=== PATIENT | female | born 2000 | race American Indian/Alaskan Native ===

== ENCOUNTER 2020-06-20 11:05 | Emergency (ER) | payer SELFPAY ==
--- NOTE | 2020-06-20 12:18 | Emergency Department Report ---
ED Female HPI - General Chief complaint: Abdominal Pain Stated complaint: ABD PAIN Time Seen by Provider: 06/20/20 12:05 Source: patient Mode of arrival: Ambulatory Limitations: No Limitations - History of Present Illness Initial comments: 20 yo female morbidly obese female. States that she's not had a period for 6 months. on this past she had one day of spotting. She denies abdominal pain , no urinary symptoms,no fever no chills - Related Data Previous Rx's Medication Instructions Recorded Last Taken Type Azithromycin [Zithromax Z-CELI] 250 mg PO DAILY #6 tablet 09/08/19 Unknown Rx Benzonatate [Tessalon Perles] 100 mg PO Q8HR #30 capsule 09/08/19 Unknown Rx Butalb/Acetamin/Caff 50-325-40 1 - 2 tab PO Q6HR PRN #12 tab 09/08/19 Unknown Rx [Fioricet 50-325-40] Cetirizine HCl [Zyrtec 10mg tab] 10 mg PO DAILY #30 tablet 09/08/19 Unknown Rx Ibuprofen [Motrin] 800 mg PO Q8HR PRN #24 tablet 09/08/19 Unknown Rx Allergies Allergy/AdvReac Type Severity Reaction Status Date / Time No Known Allergies Allergy Unverified 09/08/19 20:33 ED Review of Systems ROS: Stated complaint: ABD PAIN Other details as noted in HPI ED Past Medical Hx - Past Medical History Previous Medical History?: No - Surgical History Past Surgical History?: No - Social History Smoking Status: Never Smoker Substance Use Type: Other - Medications Home Medications: Home Medications Medication Instructions Recorded Confirmed Last Taken Type Azithromycin [Zithromax Z-CELI] 250 mg PO DAILY #6 tablet 09/08/19 Unknown Rx Benzonatate [Tessalon Perles] 100 mg PO Q8HR #30 capsule 09/08/19 Unknown Rx Butalb/Acetamin/Caff 50-325-40 1 - 2 tab PO Q6HR PRN #12 tab 09/08/19 Unknown Rx [Fioricet 50-325-40] Cetirizine HCl [Zyrtec 10mg tab] 10 mg PO DAILY #30 tablet 09/08/19 Unknown Rx Ibuprofen [Motrin] 800 mg PO Q8HR PRN #24 tablet 09/08/19 Unknown Rx ED Physical Exam - General Limitations: No Limitations ED Course Vital Signs 06/20/20 11:41 Temperature 98.8 F Pulse Rate 81 Respiratory 18 Rate Blood Pressure 133/70 O2 Sat by Pulse 99 Oximetry ED Medical Decision Making - Lab Data Result diagrams: 06/20/20 12:35 06/20/20 13:58 - Medical Decision Making This is a 20-year-old obese female complaining of not having her period for 6 months and 2 days ago having light spotting. At the time of my examination patient denied any abdominal pain. Urinalysis shows no sign of infection but her urine glucose is greater than 500 CBC is within normal limits chemistry is also within normal limits with the exception of a sodium of 134. Her glucose on her serum is 85. She has a negative test and her lipase is within normal limits. I instructed patient to follow-up with primary care doctor so she can be monitored for diabetes. She currently has no symptoms in her blood glucose is it within normal limits. I also instruct patient to follow-up with [facility] for her menstrual. And possibly be worked up for PCOS. Patient verbalized instructions Critical care attestation.: If time is entered above; I have spent that time in minutes in the direct care of this critically ill patient, excluding procedure time. ED Disposition Clinical Impression: Amenorrhea, unspecified, Obesity (BMI 35.0-39.9 without comorbidity) Disposition: DC-01 TO HOME OR SELFCARE Is pt being admited?: No Does the pt Need Aspirin: No Condition: Stable Instructions: Abdominal Pain (ED), Menstruation, Exercising to Lose Weight, Obesity, Adult Additional Instructions: Today your urine had sugar. Your blood had none normal blood sugar this may be an early sign of diabetes you are not officially diagnosed with diabetes. You also need to exercise eat a balanced diet that is low in sugar fat and carbohydrates. Follow-up with [facility] regarding your missed periods. You do not have any signs of infection in your urine and your test is normal or negative. Referrals: PRIMARY CARE, [Primary Care Provider] - 3-5 Days JOHNNIE COLE MD [Staff Physician] - 3-5 Days VISHNU ZHAO MD [Staff Physician] - 3-5 Days Forms: Work/School Release Form(ED) Time of Disposition: 15:09 Results - Results Labs/Vitals: Laboratory Last Values WBC 7.4 K/mm3 (4.5-11.0) 06/20/20 12:35 RBC 4.71 M/mm3 (3.65-5.03) 06/20/20 12:35 Hgb 14.2 gm/dl (10.1-14.3) 06/20/20 12:35 Hct 42.4 % (30.3-42.9) 06/20/20 12:35 MCV 90 fl (79-97) 06/20/20 12:35 MCH 30 pg (28-32) 06/20/20 12:35 MCHC 34 % (30-34) 06/20/20 12:35 RDW 13.2 % (13.2-15.2) 06/20/20 12:35 Plt Count 271 K/mm3 (140-440) 06/20/20 12:35 Sodium 134 mmol/L (137-145) L 06/20/20 13:58 Potassium 4.5 mmol/L (3.6-5.0) 06/20/20 13:58 Chloride 102.9 mmol/L (98-107) 06/20/20 13:58 Carbon Dioxide 26 mmol/L (22-30) 06/20/20 13:58 Anion Gap 10 mmol/L 06/20/20 13:58 BUN 12 mg/dL (7-17) 06/20/20 13:58 Creatinine 0.9 mg/dL (0.6-1.2) 06/20/20 13:58 Estimated GFR > 60 ml/min 06/20/20 13:58 BUN/Creatinine Ratio 13 % 06/20/20 13:58 Glucose 85 mg/dL (65-100) 06/20/20 13:58 Calcium 9.3 mg/dL (8.4-10.2) 06/20/20 13:58 Total Bilirubin 0.30 mg/dL (0.1-1.2) 06/20/20 13:58 AST 24 units/L (5-40) 06/20/20 13:58 ALT 24 units/L (7-56) 06/20/20 13:58 Alkaline Phosphatase 60 units/L (35-129) 06/20/20 13:58 Total Protein 7.2 g/dL (6.3-8.2) 06/20/20 13:58 Albumin 4.0 g/dL (3.9-5) 06/20/20 13:58 Albumin/Globulin Ratio 1.3 % 06/20/20 13:58 Lipase 14 units/L (13-60) 06/20/20 13:58 HCG, Qual Negative (Negative) 06/20/20 12:35 Urine Color Yellow (Yellow) 06/20/20 12:30 Urine Turbidity Clear (Clear) 06/20/20 12:30 Urine pH 5.0 (5.0-7.0) 06/20/20 12:30 Ur Specific Jennings 1.023 (1.003-1.030) 06/20/20 12:30 Urine Protein <15 mg/dl mg/dL (Negative) 06/20/20 12:30 Urine Glucose (UA) >=500 mg/dL (Negative) 06/20/20 12:30 Urine Ketones Neg mg/dL (Negative) 06/20/20 12:30 Urine Blood Neg (Negative) 06/20/20 12:30 Urine Nitrite Neg (Negative) 06/20/20 12:30 Urine Bilirubin Neg (Negative) 06/20/20 12:30 Urine Urobilinogen < 2.0 mg/dL (<2.0) 06/20/20 12:30 Ur Leukocyte Esterase Tr (Negative) 06/20/20 12:30 Urine WBC (Auto) 3.0 /HPF (0.0-6.0) 06/20/20 12:30 Urine RBC (Auto) 2.0 /HPF (0.0-6.0) 06/20/20 12:30 U Epithel Cells (Auto) 6.0 /HPF (0-13.0) 06/20/20 12:30 Urine Mucus Few /HPF 06/20/20 12:30 Last Vital Signs Temp 98.8 F 06/20/20 11:41 Pulse 81 06/20/20 11:41 Resp 18 06/20/20 11:41 BP 133/70 06/20/20 11:41 Pulse Ox 99 06/20/20 11:41
[2020-06-20 12:50] LABS: Hematocrit 42.4 % (30.3-42.9); Hemoglobin 14.2 gm/dl (10.1-14.3); Mean Corpuscular HGB Conc 34 % (30-34); Mean Corpuscular Volume 90 fl (79-97); Platelet Count 271 K/mm3 (140-440); Red Blood Count 4.71 M/mm3 (3.65-5.03); Red Cell Distribution Width 13.2 % (13.2-15.2)
[2020-06-20 13:03] LABS: Bilirubin,Urine NEG (Negative); Blood,Urine NEG (Negative); Color,Urine Yellow (Yellow); Mucus,Urine FEW /HPF; Protein,Urine <15 mg/dL mg/dL (Negative); Urobilinogen,Urine < 2.0 mg/dL (<2.0)
[2020-06-20 13:41] LABS: BUN/Creatinine Ratio TNR; Blood Urea Nitrogen TNR mg/dL (7-17)
[2020-06-20 13:42] LABS: Alanine Aminotransferase TNR units/L (7-56); Albumin TNR g/dL (3.9-5); Calcium TNR mg/dL (8.4-10.2); Hemolysis Index TNR
[2020-06-20 14:31] LABS: Alanine Aminotransferase 24 units/L (7-56); BUN/Creatinine Ratio 13; Blood Urea Nitrogen 12 mg/dL (7-17); Calcium 9.3 mg/dL (8.4-10.2); Hemolysis Index 20
[2020-06-20 15:57] VITALS: BP 134/72
== END 2020-06-20 15:57 | disposition home or self-care (01) ==
LOC: ED 11:05
DX: N91.2 Amenorrhea, unspecified (principal); E66.01 Morbid (severe) obesity due to excess calories; Z68.43 Body mass index [BMI] 50.0-59.9, adult; Z79.899 Other long term (current) drug therapy
CPT/HCPCS: 36415; 80053; 81001; 83690; 84703; 85027